=== PATIENT | male | born 1960 | race Caucasian/White ===

== ENCOUNTER 2018-04-18 09:22 | Day surgery (SDC) | payer OTHER ==
[2018-04-18 09:52] VITALS: BMI 25.1
--- NOTE | 2018-04-18 11:38 | CP.SDSHP ---
Same Day Surgery H & P - History Proposed Procedure: EGD Pre-Op Diagnosis: SEE NOTES - Previous Medical/Surgical History Endocrine/Metabolic: Diabetes Misc: Other Pain: 4.Moderate Pain - Allergies Allergies: Allergies No Known Allergies Allergy (Verified 03/30/15 23:24) - Physical Exam General Appearance: N Vital Signs: Vital Signs 04/18/18 09:56 Temperature 97.7 F Pulse Rate 78 Respiratory 16 Rate Blood Pressure 135/81 O2 Sat by Pulse 98 Oximetry Mental Status: Alert & Oriented x3 Neuro: WNL Heart: Other Lungs: WNL GI: Other - {Optional Preform as Required} Breast: WNL Abdomen: Other Rectal: Other Integument: WNL : WNL Ortho: WNL ENT: WNL - Impression Pt. Evaluated Today:Candidate for Anesthesia & Procedure: Yes - Date & Time Time: 11:38 Short Stay Discharge - Short Stay Discharge Admitting Diagnosis/Reason for Visit: DYSPEPSIA Disposition: HOME/ ROUTINE
[2018-04-18] MEDS ORDERED: Propofol 10 mg/ml Inj (20 ML) ONE (11:45)
[2018-04-18 11:47] VITALS: O2SAT 100
[2018-04-18] MEDS ORDERED: Belladonna-Phenobarbital PO ONE (11:50)
[2018-04-18 12:12] VITALS: TEMP 98.5
[2018-04-18 12:34] VITALS: BP 119/76; PULSE 71; RESP 12
== END 2018-04-18 13:10 | disposition home or self-care (01) ==
LOC: C.ENDO 09:22
PROVIDERS: ATTEND Specialist
DX: K29.70 Gastritis, unspecified, without bleeding (principal); K20.9 Esophagitis, unspecified
CPT/HCPCS: 43239; 82948; 88305; 88342; J2704

== ENCOUNTER 2018-04-20 06:30 | Day surgery (SDC) | payer OTHER ==
[2018-04-20 07:16] VITALS: O2SAT 100
[2018-04-20] MEDS ORDERED: Lactated Ringer's 1,000 ML IV ONE ×2 (07:59)
--- NOTE | 2018-04-20 07:59 | CP.SDSHP ---
Same Day Surgery H & P - History Proposed Procedure: COLONSCOPY Pre-Op Diagnosis: SEE NOTES - Previous Medical/Surgical History Endocrine/Metabolic: Diabetes Misc: Other Pain: 4.Moderate Pain Previous Surgical History: COLON SX./ POLYPS - Allergies Allergies: Allergies No Known Allergies Allergy (Verified 04/20/18 06:52) - Physical Exam General Appearance: N Vital Signs: Vital Signs 04/20/18 06:59 Temperature 97.1 F L Pulse Rate 80 Respiratory 20 Rate Blood Pressure 130/79 O2 Sat by Pulse 100 Oximetry Mental Status: Alert & Oriented x3 Neuro: WNL Heart: WNL Lungs: WNL GI: Other - {Optional Preform as Required} Breast: WNL Abdomen: Other Rectal: Other Integument: WNL : WNL Ortho: WNL ENT: WNL - Impression Pt. Evaluated Today:Candidate for Anesthesia & Procedure: Yes - Date & Time Time: 07:59 Short Stay Discharge - Short Stay Discharge Admitting Diagnosis/Reason for Visit: HISTORY OF COLON POLYPS Disposition: HOME/ ROUTINE
[2018-04-20] MEDS ORDERED: Lactated Ringer's 500 ML IV SCH (08:00)
[2018-04-20] MEDS ORDERED: Propofol 10 mg/ml Inj (20 ML) ONE (08:03)
[2018-04-20] MEDS ORDERED: Belladonna-Phenobarbital PO ONE (08:15)
[2018-04-20 08:35] VITALS: TEMP 96.8
[2018-04-20 08:47] VITALS: BP 140/88; PULSE 83; RESP 17
== END 2018-04-20 09:21 | disposition home or self-care (01) ==
LOC: C.ENDO 06:30
PROVIDERS: ATTEND Specialist
DX: Z12.11 Encounter for screening for malignant neoplasm of colon (principal); Z86.010 Personal history of colon polyps; K64.4 Residual hemorrhoidal skin tags; K64.8 Other hemorrhoids; E11.9 Type 2 diabetes mellitus without complications; K52.9 Noninfective gastroenteritis and colitis, unspecified
CPT/HCPCS: 45380; 82948; 88305; J2704; J3010; J7120